=== PATIENT | male | born 1960 | race Hispanic/Latino ===

== ENCOUNTER 2018-03-26 07:23 | Day surgery (SDC) | payer MEDICAID ==
[~2018-03-26] VITALS: Ht 175.3 cm; Wt 93.4 kg
[~2018-03-26 07:23] MED LIST: AMLO5TAB2 PO; ASPI-1197 PO; FLUT16H NASAL; HYDR25TA PO; LEVO125T11 PO; METF500T6 PO; PIOG30TA70 PO; PRAV40TA3 PO; RANI-248 PO; VARE1TAB22 PO
[2018-03-26 08:08] VITALS: BP 100/74
[2018-03-26] MEDS ORDERED: SODIUM CHLORIDE 0.9% 1000ML 1,000 ML IV ONE (08:16)
[2018-03-26] MEDS ORDERED: INSULIN HUMULIN R 100 UNIT/ML 3ML ONE (08:34)
[2018-03-26] MEDS ORDERED: PROPOFOL 10 MG/ML 20ML VIAL IV ONE (09:36)
[2018-03-26 09:54] VITALS: BP 73/40
== END 2018-03-26 10:30 | disposition home or self-care (01) ==
LOC: DAH 07:23
PROVIDERS: ATTEND Internal Medicine Gastroenterology
DX: Z12.11 Encounter for screening for malignant neoplasm of colon (principal); Z86.010 Personal history of colon polyps; E11.9 Type 2 diabetes mellitus without complications; I10 Essential (primary) hypertension; E78.5 Hyperlipidemia, unspecified; K57.30 Diverticulosis of large intestine without perforation or abscess without bleeding; K64.1 Second degree hemorrhoids; E03.9 Hypothyroidism, unspecified; K21.9 Gastro-esophageal reflux disease without esophagitis; Z79.899 Other long term (current) drug therapy; Z98.890 Other specified postprocedural states; Z68.30 Body mass index [BMI] 30.0-30.9, adult; Z79.84 Long term (current) use of oral hypoglycemic drugs; F17.210 Nicotine dependence, cigarettes, uncomplicated; Z88.8 Allergy status to other drugs, medicaments and biological substances
CPT/HCPCS: 45380; 45385; 82948 ×2; 88305; A4606; J1815; J2704; J7030